=== PATIENT | male | born 1940 | race Caucasian/White ===

== ENCOUNTER 2018-08-26 00:25 | Inpatient (IN) | payer MEDICARE, OTHER ==
[2018-08-26] VITALS (45 sets, daily range): BP systolic 64–132; BP diastolic 43–107; PULSE 65–97; RESP 14–25
[~2018-08-26] VITALS: Ht 172.7 cm; Wt 90.0 kg
[2018-08-26] MEDS ORDERED: SODIUM CHLORIDE 0.9% 1L BAG IV* STA (00:31)
[2018-08-26] MEDS ORDERED: CEFEPIME 2GM/50 ML (PMX) 50 ML IVPB STA (00:31)
[2018-08-26] MEDS ORDERED: VANCOMYCIN 1 GM (PMX) 250 ML IVPB ONE (01:00)
[2018-08-26] MEDS ORDERED: NORepinephrine 8MG/250 ML (PMX 250 ML IV STA (02:39)
[2018-08-26] MEDS ORDERED: CALCIUM GLUCONATE 10% 1 GM in DEXTROSE 5% 100 ML IVPB ONE (03:00)
[2018-08-26] MEDS ORDERED: NA BICARBONATE 8.4% 50 ML SYG IV ONE (03:00)
[2018-08-26] MEDS: SOD CHLORIDE 0.9% 1,000 ML IV SCH ×3 (03:12→20:14)
[2018-08-26] MEDS ORDERED: SODIUM POLYSTYRENE 15 GM KIT (POWDER + SORBITOL) PO ONE (03:30)
[2018-08-26] MEDS ORDERED: ONDANSETRON 4 MG INJ IV PRN (03:30)
[2018-08-26] MEDS ORDERED: ACETAMINOPHEN 650MG/20.3ML CUP PO PRN (03:30)
[2018-08-26] MEDS ORDERED: ALBUTEROL/IPRATROPIUM (NEB) 3 ML AMP NEB PRN (03:30)
[2018-08-26] MEDS ORDERED: BISA10SU55 RC (03:51)
[2018-08-26] MEDS ORDERED: MAGN400O19 PO (03:51)
[2018-08-26] MEDS ORDERED: ASPI-535 PO (03:51)
[2018-08-26] MEDS ORDERED: HEPA500021 SQ (03:51)
[2018-08-26] MEDS ORDERED: NA P230E RC (03:51)
[2018-08-26] MEDS ORDERED: CHOL100062 PO (03:51)
[2018-08-26] MEDS ORDERED: ATOR-2 PO (03:51)
[2018-08-26] MEDS ORDERED: TUBE5VIA3 ID (03:51)
[2018-08-26] MEDS ORDERED: MULT-105 PO (03:51)
[2018-08-26] MEDS ORDERED: TAMS-14 PO (03:51)
[2018-08-26] MEDS ORDERED: GABA300C16 PO (03:51)
[2018-08-26] MEDS ORDERED: ACET325T45 PO (03:51)
[2018-08-26] MEDS ORDERED: LISI2.5T59 PO (03:51)
--- NOTE | 2018-08-26 03:56 | ERD ---
ER Documentation Chief Complaint Chief Complaint bib ra from home for hypotension, weakness HPI 77-year-old male history of stroke, prior colon CA status post resection in June who presents to the emergency room with weakness and hypotension. It appears the patient has had multiple aspiration events over the last several months. The patient has a cough today. Patient has decreased responsiveness and is feeling generally weak. He is here with his daughter. He is full code. Symptoms are severe and remainder of HPI is limited given severe hypotension. ROS All systems reviewed and are negative except as per history of present illness. Medications Home Meds Reported Medications Cholecalciferol* (Vitamin D3*) 1,000 Unit Tablet, 1000 UNIT PO DAILY, TAB 08/26/18 Tuberculin,Purif.prot.deriv. (Tubersol) 5 Tub Unit/0.1 Ml Vial, 5 TUB ID, VIAL INJECT 0.1 ML INTRADERMALLY EVERY 10 DAYS FOR PPD SCREENING FOR 11DAYS READ IN 48 HOURS, IF NEGATIVE GIVE 2 STEP IN 7 DAYS FROM FIRST DOSE. 08/26/18 Tamsulosin Hcl* (Flomax*) 0.4 Mg Cap.er.24h, 0.4 MG PO HS, CAP 08/26/18 Multivitamin with Minerals (Multivitamins with Minerals) 1 Each Tablet, 1 EACH PO DAILY, TAB 08/26/18 Lisinopril* (Lisinopril*) 2.5 Mg Tablet, 2.5 MG PO DAILY for HTN, #30 TAB 08/26/18 Heparin Sodium,Porcine/Pf (HEPARIN SOD 5,000 UNIT/ 0.5 ML) 5,000 Unit/0.5 Ml Vial, 5000 UNIT SQ Q12H for DVTPROPHYLAXIS, VIAL 08/26/18 Gabapentin* (Gabapentin*) 300 Mg Capsule, 300 MG PO QHS, #60 CAP 08/26/18 Na Phos,M-B/Na Phos,Di-Ba (Fleet Enema Extra) 230 Ml Enema, 230 ML RC, ENEMA 08/26/18 Bisacodyl (Dulcolax) 10 Mg Supp.rect, 10 MG RC PRN for CONSTIPATION, SUPP.RECT 08/26/18 Magnesium Hydroxide* (Milk Of Magnesia*) 400 Mg/5 Ml Oral.susp, 30 ML PO DAILY, ML 08/26/18 Atorvastatin* (Atorvastatin*) 80 Mg Tablet, 80 MG PO QHS, #30 TAB 08/26/18 Aspirin Ec (Aspir 81) 81 Mg Tablet.dr, 81 MG PO DAILY for CVA PROPHYLAXIS, #30 TAB 08/26/18 Acetaminophen* (Acetaminophen*) 325 Mg Tablet, 650 MG PO Q4H PRN for PAIN AND OR ELEVATED TEMP, #30 TAB 08/26/18 Allergies Allergies: Coded Allergies: No Known Allergy (Unverified , 08/26/18) PMhx/Soc Hx Neurological Disorder: Yes Hx Respiratory Disorders: Yes Hx Cardiac Disorders: Yes Hx Psychiatric Problems: Yes Hx Alcohol Use: No Hx Substance Use: No Hx Tobacco Use: No Smoking Status: Never smoker FmHx Family History: No diabetes Physical Exam Vitals Vital Signs Date Temp Pulse Resp B/P (MAP) Pulse Ox O2 O2 Flow FiO2 Time Delivery Rate 08/26/18 99 18 144/77 98 Room Air 04:08 (99) 08/26/18 98.7 89 22 119/82 100 Room Air 03:57 (94) 08/26/18 98.7 98 22 88/60 (69) 93 Room Air 03:50 08/26/18 88 22 100/75 93 Room Air 03:05 (83) 08/26/18 88 22 89/59 (69) 93 Room Air 02:05 08/26/18 98.7 93 22 94/43 (60) 100 Room Air 01:31 08/26/18 98.7 95 25 76/52 (60) 100 00:36 08/26/18 Nasal 00:36 Cannula Physical Exam General: No significant distress Head: Normocephalic, atraumatic. Eyes: Pupils equally reactive, EOM intact ENT: Moist mucous membranes Neck: Supple, no lymphadenopathy Respiratory: Rhonchi bilaterally Cardiovascular: RRR, no murmurs, rubs, or gallops Abdominal: Soft, ostomy with good output : Deferred MSK: Limited movement of all 4 extremities, no bony abnormalities Neurologic: Limited exam, and encephalopathic, limited movement of all 4 extremi ties Skin: No rash, no significant breakdown Psych: Unable to assess Result Diagram: 08/26/18 0030 08/26/18 0030 Results 24 hrs Laboratory Tests Test 08/26/18 00:30 08/26/18 00:38 08/26/18 02:50 White Blood Count 18.8 10^3/ul Red Blood Count 3.81 10^6/ul Hemoglobin 12.0 g/dl Hematocrit 35.2 % Mean Corpuscular Volume 92.4 fl Mean Corpuscular Hemoglobin 31.5 pg Mean Corpuscular 34.1 g/dl Hemoglobin Concent Red Cell Distribution Width 14.0 % Platelet Count 654 10^3/UL Mean Platelet Volume 9.6 fl Immature Granulocytes % 1.500 % Neutrophils % % Segmented Neutrophils % (Manual) 85 % Lymphocytes % % Lymphocytes % (Manual) 5 % Reactive Lymphocytes % (Manual) 1 % Monocytes % % Monocytes % (Manual) 9 % Eosinophils % % Basophils % % Nucleated Red Blood Cells % 0.0 /100WBC Immature Granulocytes # 0.280 10^3/ul Neutrophils # 10^3/ul Lymphocytes (Manual) 0.9 10^3/ul Lymphocytes # 10^3/ul Reactive Lymphocytes # 0.1 10^3/ul Monocytes # 10^3/ul Monocytes # (Manual) 1.6 10^3/ul Eosinophils # 10^3/ul Basophils # 10^3/ul Nucleated Red Blood Cells # 10^3/ul Platelet Estimate INCREASED Anisocytosis 1+ Microcytosis 1+ Prothrombin Time 12.4 Sec Prothrombin Time Ratio 1.0 INR International Normalized Ratio 0.91 Activated Partial Thromboplast 28.1 Sec Time Sodium Level 132 mmol/L Potassium Level 6.1 mmol/L Chloride Level 91 mmol/L Carbon Dioxide Level 16 mmol/L Anion Gap 25 Blood Urea Nitrogen 91 mg/dl Creatinine 7.50 mg/dl Est Glomerular Filtrat Rate mL/min mL/min Glucose Level 184 mg/dl Calcium Level 10.8 mg/dl Total Bilirubin 0.9 mg/dl Direct Bilirubin 0.00 mg/dl Indirect Bilirubin 0.9 mg/dl Aspartate Amino Transf (AST/SGOT) 88 IU/L Alanine 189 IU/L Aminotransferase (ALT/SGPT) Alkaline Phosphatase 288 IU/L Troponin I 0.012 ng/ml Total Protein 9.6 g/dl Albumin 4.8 g/dl Globulin 4.80 g/dl Albumin/Globulin Ratio 1.00 Lipase 915 U/L POC Venous Lactate 3.1 mmol/L Lactic Acid Level 1.3 mmol/L Current Medications Medications Dose Sig/Cindy Start Time Status Last (Trade) Ordered Route PRN Stop Time Admin Dose Reason Admin Sodium 2,700 ml BOLUS OVER 2 08/26/18 DC 08/26/18 Chloride HOURS STAT 00:31 00:45 (NS) IV* 08/26/18 00:33 Cefepime HCl 50 ml @ ONCE STAT 08/26/18 DC 08/26/18 100 mls/hr IVPB 00:31 00:59 08/26/18 01:00 Vancomycin 250 ml @ ONCE ONCE 08/26/18 DC 08/26/18 HCl 125 mls/hr IVPB 01:00 02:11 08/26/18 02:59 250 ml @ ONCE STAT 08/26/18 08/26/18 Norepinephrin 7.5 mls/hr IV 02:39 02:48 e 08/27/18 11:58 Calcium 110 ml @ ONCE ONCE 08/26/18 DC 08/26/18 Gluconate 1 110 mls/hr IVPB 03:00 03:01 gm/Dextrose 08/26/18 03:59 Sodium 50 ml ONCE ONCE 08/26/18 DC 08/26/18 Bicarbonate IV 03:00 03:01 (Na Bicarb 08/26/18 03:01 8.4% Syg) Sodium 1,000 ml @ Q10H IV 08/26/18 Chloride 100 mls/hr 03:12 Ondansetron 4 mg Q6H PRN 08/26/18 HCl (Zofran IV NAUSEA 03:30 Inj) AND/OR VOMITING Albuterol/ 3 ml Q2H RESP 08/26/18 Ipratropium THERAPY PRN 03:30 (Duoneb) NEB SHORTNESS OF BREATH 650 mg Q6H PRN 08/26/18 Acetaminophen PO PAIN 03:30 (Tylenol LEVEL 1-3 OR Liquid) FEVER Famotidine 20 mg DAILY IV 08/26/18 (Pepcid Iv) 09:00 Heparin 5,000 unit Q12 SC 08/26/18 Sodium 09:00 (Porcine) (Heparin (5000 Units/1ml)) 250 ml @ PER 08/26/18 Norepinephrin 1.875 mls/ PROTOCOL IV 03:30 e hr 100 ml @ ONCE ONCE 08/26/18 Levofloxacin/ 100 mls/hr IVPB 06:00 Dextrose 08/26/18 06:59 Sodium 30 gm ONCE ONCE 08/26/18 DC Polystyrene PO 03:30 Sulfonate 08/26/18 03:31 (Kayexelate 15 Gm Kit (Powder+Sorbi racquel)) 50 ml @ 50 Q48H IVPB 08/28/18 Levofloxacin/ mls/hr 06:00 Dextrose Procedures/MDM EKG, MONITORS, & DIAGNOSTIC IMAGING: EKG: I reviewed and interpreted a 12-lead EKG. Rhythm: Normal sinus rhythm ST Changes: No contiguous ST segment elevations T waves: No contiguous T wave inversions Impression: No evidence of acute cardiac ischemia cXR IMPRESSION: 1. Mildly diminished lung volumes, otherwise no acute findings. 2. Aortic atherosclerosis. RPTAT: HJBB Repeat CXR Chest x-ray: I reviewed and interpreted a 1 view of the chest Mediastinum: No enlargement Cardiac silhouette: No cardiomegaly Airspace: TLC in good position, no ptx Bones: No evidence of fracture CT a/pIMPRESSION: 1. Heterogeneous air space consolidation in the posterior right lung base compatible with atelectasis, aspiration or pneumonia. 2. No additional acute inflammatory process in the imaged abdomen or pelvis. 3. Changes related to previous bowel surgery. No evidence for obstruction. 4. Several small gallbladder calcifications. 5. Moderate aortic atherosclerosis. 6. Large left and small right fat containing inguinal hernias. RPTAT: HJBB PROCEDURE: Central Line Note: Consent: Critical patient, unable to obtain informed consent Indication: Critically ill patient requiring specialized vascular access for fluid or pressor management Location: Right IJ Indication: Shock Procedure: Sterile procedure was observed throughout insertion of the central line. The insertion site was prepped with sterile solution. Ultrasound-guided identification of the vein was performed. Insertion of a needle into the vein was obtained with return of dark, nonpulsatile blood. The wire was then threaded through the needle without complication. The wire was then identified within the vein using ultrasound. A small skin incision was made, the needle was removed intact, dilation of the vein was performed and insertion of a triple lumen catheter was completed. The catheter was then sutured to the skin. All 3 ports grant back and flushed without difficulty. A sterile dressing was applied. The patient tolerated the procedure well there were no complications. Emergency Bedside Ultrasound: Indication: Central line Probe Type: Linear Findings: Dynamic ultrasound utilizing compressive technique with both linear and horizontal views, additional images showing wire within the venous system were obtained. The images were saved along with patient information on a paper chart to be scanned into EMR. The patient tolerated the procedure well and there were no complications. A post-line chest x-ray was ordered as indicated. LAB INTERPRETATION: I reviewed the laboratory testing and it shows leukocytosis, lactic acidosis, acute renal failure, hyperkalemia MEDICAL DECISION MAKING: Patient presents with hypotension. Cough, likely aspiration event. Patient also appears to be significantly dehydrated. Code sepsis initiated. The patient's goals of care were discussed with the family member. The patient is full code. ER COURSE: * Patient had aggressive fluid resuscitation, blood cultures, broad-spectrum antibiotics. Persistent hypotension was noted. Triple-lumen catheter was inserted. * Patient continues to protect his airway and does not require intubation. Continue to monitor. Pressor, levo, initiated and titrated for mean arterial pressure greater than 65 * Patient had hyperkalemia acute renal failure, patient appears to be dehydrated and this will likely correct with fluid resuscitation. Hyperkalemia without evidence of EKG changes. However, calcium provided, bicarbonate provided. Patient is not a good candidate for Kayexalate. Continue to monitor. CONSULTATION: None DISPOSITION PLAN: Accepting care team and consultations: I discussed the current laboratory data, diagnostic imaging and emergency care provided. Admitting team: Dr. Cosby Admitting team indication: Insurance directed Sepsis Documentation: Patient's infectious symptoms have not stabilized and the patient is at risk of rapid decompensation. The patient will be admitted for careful hydration, antibiotic therapy, and infectious source control. SEVERE SEPSIS CRITERIA: Infectious source: Aspiration pneumonia End organ damage indicated by: [Lactate > 2.0 mmol/L Hypotension (SBP < 90 or >40 mmHG drop or MAP < 65) SEPSIS MANAGEMENT Time of recognition of sepsis: Upon MD assessment. Time of recognition of severe sepsis: 12:38 AM. Time of recognition of septic shock: 1:30 AM. 3 HOUR BUNDLE Blood cultures x 2 before broad-spectrum antibiotics: Yes 30 ml/kg NS bolus completed Initial lactate 3.1 Repeat lactate 1.3 SEPTIC SHOCK ASSESSMENT: No lactic acid > 4.0 YES Persistent hypotension (SBP < 90 or 40 mmHg drop, MAP < 65) despite 30 mL/kg IV fluid bolus VOLUME REASSESSMENT FOR SEPTIC SHOCK: Reevaluation Time: 2:05 AM Temperature of 98.7 heart rate 88 respiratory 22 blood pressure 89/59 pulse ox 93 on room air Heart regular rate & rhythm Lungs rhonchi Skin warm & dry Cap Refill less than 2 seconds Peripheral pulses radially present PERSISTENT HYPOTENSION TREATMENT: Comfort care no Central line RIJ Vasopressor started YES, levo I considered further perfusion assessment with CVP measurement, SCVO2, bedside ultrasound volume assessment, passive leg raise, trial of further fluid bolus. And proceeded with 30 ml/kg fluid bolus of NSS, broad spectrum antibiotics, and admission. CRITICAL CARE Critical care time 55 minutes Emergent fluid management while maintaining close respiratory support. Provision of immediate and broad-spectrum antibiotic therapy. Simultaneous as sessment for possible sources in order to direct targeted therapy. Consideration for invasive and chemical support to prevent cardiopulmonary collapse. Critical care time is independent of procedures performed. Departure Diagnosis: Primary Impression: Septic shock Additional Impressions: Dehydration, severe Acute renal failure Acute renal failure type: unspecified Qualified Codes: N17.9 - Acute kidney failure, unspecified Hyperkalemia Aspiration pneumonia Aspiration pneumonia type: unspecified Laterality: unspecified laterality Lung location: unspecified part of lung Qualified Codes: J69.0 - Pneumonitis due to inhalation of food and vomit Condition: Critical MICAH PERRY MD Aug 26, 2018 03:56
[2018-08-26] MEDS ORDERED: LEVOFLOXACIN 500MG/D5W (PMX) 100 ML IVPB ONE (06:00)
--- NOTE | 2018-08-26 06:40 | HP ---
Date/Time of Note Date/Time of Note DATE: 08/26/18 TIME: 06:34 Assessment/Plan VTE Prophylaxis Pharmacological prophylaxis: heparin Lines/Catheters IV Catheter Type (from Nrsg): Saline Lock Assessment/Plan Assessment/Plan 1. Shock, hypovolemic versus septic -IV fluid -Pressure support as needed -ICU admission if continues to require pressor -2D echo -Empiric IV antibiotic 2. Presumed acute on CKD, secondary to hypotension -IV fluid, pressor support -Will place a Brady, but patient appears to have a urostomy -Renal ultrasound -Nephrology consult 3. Sepsis: Likely secondary to aspiration pneumonia -Empiric IV antibiotic -Trend lactate -Follow-up culture results 4. Hypokalemia: Secondary to acute on CKD -correct as needed -Nephrology consult 5. Metabolic acidosis, secondary to acute on CKD -Status post bicarb push -See #2 6. History of colon cancer, status post resection 7. History of CVA: Supportive care Result Diagram: 08/26/18 0030 08/26/18 0030 Results 24hrs Laboratory Tests Test 08/26/18 00:30 08/26/18 00:38 08/26/18 02:50 White Blood Count 18.8 H Red Blood Count 3.81 L Hemoglobin 12.0 L Hematocrit 35.2 L Mean Corpuscular Volume 92.4 Mean Corpuscular Hemoglobin 31.5 Mean Corpuscular Hemoglobin Concent 34.1 Red Cell Distribution Width 14.0 Platelet Count 654 H Mean Platelet Volume 9.6 Immature Granulocytes % 1.500 H Neutrophils % Segmented Neutrophils % (Manual) 85 H Lymphocytes % Lymphocytes % (Manual) 5 L Reactive Lymphocytes % (Manual) 1 H Monocytes % Monocytes % (Manual) 9 Eosinophils % Basophils % Nucleated Red Blood Cells % 0.0 Immature Granulocytes # 0.280 H Neutrophils # Lymphocytes (Manual) 0.9 Lymphocytes # Reactive Lymphocytes # 0.1 H Monocytes # Monocytes # (Manual) 1.6 H Eosinophils # Basophils # Nucleated Red Blood Cells # Platelet Estimate INCREASED Anisocytosis 1+ Microcytosis 1+ Prothrombin Time 12.4 Prothrombin Time Ratio 1.0 INR International Normalized Ratio 0.91 Activated Partial Thromboplast Time 28.1 Sodium Level 132 L Potassium Level 6.1 *H Chloride Level 91 L Carbon Dioxide Level 16 L Anion Gap 25 H Blood Urea Nitrogen 91 H Creatinine 7.50 H Est Glomerular Filtrat Rate mL/min Glucose Level 184 Calcium Level 10.8 H Total Bilirubin 0.9 Direct Bilirubin 0.00 Indirect Bilirubin 0.9 Aspartate Amino Transf (AST/SGOT) 88 H Alanine Aminotransferase (ALT/SGPT) 189 H Alkaline Phosphatase 288 H Troponin I 0.012 Total Protein 9.6 H Albumin 4.8 Globulin 4.80 H Albumin/Globulin Ratio 1.00 Lipase 915 H POC Venous Lactate 3.1 *H Lactic Acid Level 1.3 HPI/ROS Admit Date/Time Admit Date/Time Hx of Present Illness Patient is a 77-year-old male with a history of hypertension, dyslipidemia, BPH, colon CA with right-sided colostomy or urostomy and history of CVA. Patient was brought from SNF for hypotension. Patient is a poor historian as such information is been from chart review and from the ER physician. Presents the ER, blood pressure was 76/52. He was found to have a creatinine of 7.5 with a potassium 6.1 8, BUN 91, bicarb 16, status post bicarb push. WBC 19,000, initial lactate 3.1, trended down to 1.3 CT abdomen/pelvis shows 1. Heterogeneous air space consolidation in the posterior right lung base compatible with atelectasis, aspiration or pneumonia. 2. No additional acute inflammatory process in the imaged abdomen or pelvis. 3. Changes related to previous bowel surgery. No evidence for obstruction. 4. Several small gallbladder calcifications. 5. Moderate aortic atherosclerosis. 6. Large left and small right fat containing inguinal hernias. PMH/Family/Social Past Medical History Medical History: other (See HPI) Medications Current Medications Norepinephrine 250 ml @ 7.5 mls/hr ONCE STAT IV Last administered on 08/26/18at 02:48; Admin Dose 7.5 MLS/HR; Start 08/26/18 at 02:39; Stop 08/27/18 at 11:58 Sodium Chloride 1,000 ml @ 100 mls/hr Q10H IV Last administered on 08/26/18at 03:12; Admin Dose 100 MLS/HR; Start 08/26/18 at 03:12 Ondansetron HCl (Zofran Inj) 4 mg Q6H PRN IV NAUSEA AND/OR VOMITING; Start 08/26/18 at 03:30 Albuterol/ Ipratropium (Duoneb) 3 ml Q2H RESP THERAPY PRN NEB SHORTNESS OF BREATH; Start 08/26/18 at 03:30 Acetaminophen (Tylenol Liquid) 650 mg Q6H PRN PO PAIN LEVEL 1-3 OR FEVER; Start 08/26/18 at 03:30 Famotidine (Pepcid Iv) 20 mg DAILY IV ; Start 08/26/18 at 09:00 Heparin Sodium (Porcine) (Heparin (5000 Units/1ml)) 5,000 unit Q12 SC ; Start 08/26/18 at 09:00 Norepinephrine 250 ml @ 1.875 mls/ hr PER PROTOCOL IV ; Start 08/26/18 at 03:30 Levofloxacin/ Dextrose 100 ml @ 100 mls/hr ONCE ONCE IVPB ; Start 08/26/18 at 06:00; Stop 08/26/18 at 06:59 Levofloxacin/ Dextrose 50 ml @ 50 mls/hr Q48H IVPB ; Start 08/28/18 at 06:00 Coded Allergies: No Known Allergy (Unverified , 08/26/18) Past Surgical History Past Surgical Hx: other (See HPI) Family History Significant Family History: no pertinent family hx Social History Alcohol Use: none Smoking Status: Never smoker Drug Use: none Exam/Review of Systems Vital Signs Vitals Vital Signs Date Temp Pulse Resp B/P (MAP) Pulse Ox O2 O2 Flow FiO2 Time Delivery Rate 08/26/18 101 18 129/75 100 Room Air 05:39 (93) 08/26/18 98.7 04:41 Exam Constitutional: other (No acute distress) Head: normocephalic, atraumatic Eyes: EOMI, PERRL Respiratory: normal air movement Cardiovascular: other (Tachycardic with regular rhythm) Gastrointestinal: other (Right-sided colostomy/urostomy bag in place with liquid content) Extremities: normal pulses YING COELHO MD Aug 26, 2018 06:40
[2018-08-26] MEDS: FAMOTIDINE 20 MG INJ IV SCH (08:05)
[2018-08-26] MEDS: HEPARIN 5,000 UNIT/1 ML VIAL SC SCH ×2 (08:05→20:18)
--- NOTE | 2018-08-26 09:15 | CONS ---
DATE OF ADMISSION: 08/26/2018 DATE OF CONSULTATION: 08/26/2018 TYPE OF CONSULTATION: Nephrology. REASON FOR CONSULTATION: Acute kidney injury. PHYSICIAN REQUESTING CONSULTATION: Dr. Cosby. HISTORY OF PRESENT ILLNESS: This is a 77-year-old male with a past medical history of bone cancer st atus post resection, history of neuropathy, who presents to [facility] with weaknes s and hypertension. The patient's history is obtained by reviewing medical records speaking to [facility] staff. The patient currently is having a cough for the past 24 hours. The patient was noted to be feeling weak, more responsive and as a result, he was brought into the emergency room. Upon arriv al, the patient was found to be hypertensive with systolic pressures in 70s. The patient had a mildl y elevated creatinine of 7.5 and bicarbonate of 16. The patient had a lactic acid of 3.1. White cou nt 19,000. The patient had a CT scan of abdomen and pelvis, which showed findings of possible pneumo vashti. The patient was started on IV fluids, antibiotics and pressor support. In terms of patient's renal history, there have been no reports of any prior history of acute kidney injury or chronic kidney disease per medical records. The patient had no reports of any hemoptysis, hematemesis or hematochezia. PAST MEDICAL HISTORY: History of colon cancer. PAST SURGICAL HISTORY: Status post colectomy with ileostomy. FAMILY HISTORY: No family history of kidney disease. SOCIAL HISTORY: He does not drink, smoke or do drugs. MEDICATIONS: The patient's medications have been reviewed. REVIEW OF SYSTEMS: Unable to do adequate review of systems as patient is obtunded. Pertinent positi ves as obtained by reviewing medical records, speaking to hospital staff, stated in HPI, otherwise ne gative. PHYSICAL EXAMINATION: VITAL SIGNS: Blood pressure is 142/78, respirations 18, pulse 106, temperature 98.7. HEENT: Head is normocephalic. NECK: Supple. HEART: Regular rate. LUNGS: Show diminished breath sounds at the base. ABDOMEN: Soft, nontender to palpation without rebound or guarding. The patient has noted ileostomy and history of a colectomy. EXTREMITIES: Negative for clubbing, cyanosis, no edema. DERMATOLOGIC: No rashes. MUSCULOSKELETAL: No joint effusion. NEUROLOGIC: The patient is obtunded. LABORATORY DATA: Reviewed. ASSESSMENT AND PLAN: This is a 77-year-old male who presents with: 1. Nonoliguric acute kidney injury with unknown baseline creatinine. Etiology of acute kidney injur y is likely multifactorial secondary to septic acute kidney injury, volume depletion, hemodynamics. The possibility of tubular injury due to sepsis and shock is a consideration. The patient's CT scan shows no evidence of hydronephrosis or obstruction. Plan at this point is to have a Brady catheter p laced. We will continue aggressive IV hydration. Continue antibiotic therapy. Continue pressor sup port to maintain MAP of 65. We will monitor renal function closely. If renal function does not impr ove with supportive care, we would consider renal replacement therapy. 2. Hyperkalemia. Etiology is multifactorial secondary to acute kidney injury, metabolic acidosis. The patient is status post IV fluids, bicarbonate therapy. Plan is to repeat a renal panel, monitor potassium levels closely. If potassium levels cannot be medically managed, we would consider startin g renal replacement therapy. 3. Hypernatremia secondary to acute kidney injury. Continue to monitor. 4. Metabolic high anion gap acidosis with nonanion gap acidosis. Etiology is secondary to acute kid rick injury, lactic acidosis. Plan is to check an ABG to see if the patient is appropriately compensa tamy. The patient may require bicarbonate drip. We will monitor closely. 5. Lactic acidosis secondary to septic shock. Continue to treat underlying sepsis. Continue to ar[place] nd lactic acid levels. Monitor closely. 6. Anemia. Continue to monitor hemoglobin and hematocrit levels. 7. Mineral bone disorder, monitor calcium and phosphorus levels. 8. Septic shock. Etiology is unclear, possible pneumonia. Continue current management. Continue a ntibiotics, pressor support and IV fluids. 9. Acute encephalopathy, etiology is toxic metabolic. 10. History of colon cancer, status post resection. 11. History of cerebrovascular accident. Thank you, Dr. Cosby, for this interesting consult. It will be a pleasure to follow the patient with you throughout the hospital course. Dictated By: LE FLOREZ/CHRISSY Conf#: [id number] DID#: [id number] CC: MICAH PERRY MD;*EndCC*
[2018-08-26] MEDS: NORepinephrine 8MG/250 ML (PMX 250 ML IV SCH (13:02)
--- NOTE | 2018-08-26 17:58 | PN ---
Date/Time of Note Date/Time of Note DATE: 08/26/18 TIME: 17:51 Assessment/Plan VTE Prophylaxis Pharmacological prophylaxis: heparin Assessment/Plan Hospital Course 1. Septic shock likely secondary to pneumonia -CT shows possible right lung pneumonia -Continue empiric IV antibiotics -IV fluid -Pressors as needed -Follow-up on cultures 2. Presumed acute on CKD, secondary to sepsis and hemodynamics -IV fluid, pressor support -Brady placed -Nephrology consult appreciated, patient may need dialysis if renal function does not improve 3. Hyperkalemia secondary to renal failure-resolved -Corrected with bicarb and Kayexalate 4. History of colon cancer, status post resection 5. Metabolic acidosis, secondary to acute on CKD and sepsis -Status post bicarb push -Continue fluids and antibiotics 6. Transaminitis likely secondary to shock -Monitor 7. History of CVA: Supportive care Prophylaxis: Heparin Result Diagram: 08/26/18 0030 08/26/18 1108 Results 24hrs Laboratory Tests Test 08/26/18 00:30 08/26/18 00:38 08/26/18 02:50 08/26/18 05:27 White Blood Count 18.8 H Red Blood Count 3.81 L Hemoglobin 12.0 L Hematocrit 35.2 L Mean Corpuscular 92.4 Volume Mean Corpuscular 31.5 Hemoglobin Mean Corpuscular 34.1 Hemoglobin Concen t Red Cell 14.0 Distribution Width Platelet Count 654 H Mean Platelet 9.6 Volume Immature 1.500 H Granulocytes % Neutrophils % Segmented 85 H Neutrophils % (Manual) Lymphocytes % Lymphocytes % 5 L (Manual) Reactive 1 H Lymphocytes % (Manual) Monocytes % Monocytes % 9 (Manual) Eosinophils % Basophils % Nucleated Red 0.0 Blood Cells % Immature 0.280 H Granulocytes # Neutrophils # Lymphocytes 0.9 (Manual) Lymphocytes # Reactive 0.1 H Lymphocytes # Monocytes # Monocytes # 1.6 H (Manual) Eosinophils # Basophils # Nucleated Red Blood Cells # Platelet Estimate INCREASED Anisocytosis 1+ Microcytosis 1+ Prothrombin Time 12.4 Prothrombin Time 1.0 Ratio INR International 0.91 Normalized Ratio Activated 28.1 Partial Thrombopl ast Time Sodium Level 132 L Potassium Level 6.1 *H Chloride Level 91 L Carbon Dioxide 16 L Level Anion Gap 25 H Blood Urea 91 H Nitrogen Creatinine 7.50 H Est Glomerular Filtrat Rate mL/min Glucose Level 184 Calcium Level 10.8 H Total Bilirubin 0.9 Direct Bilirubin 0.00 Indirect 0.9 Bilirubin Aspartate Amino 88 H Transf (AST/SGOT) Alanine 189 H Aminotransferase (ALT/SGPT) Alkaline 288 H Phosphatase Troponin I 0.012 Total Protein 9.6 H Albumin 4.8 Globulin 4.80 H Albumin/Globulin 1.00 Ratio Lipase 915 H POC Venous 3.1 *H Lactate Lactic Acid Level 1.3 2.7 *H Test 08/26/18 11:08 08/26/18 14:00 Sodium Level 135 Potassium Level 5.0 Chloride Level 101 # Carbon Dioxide 16 L Level Anion Gap 18 #H Blood Urea 91 H Nitrogen Creatinine 6.10 H Est Glomerular Filtrat Rate mL/min Glucose Level 141 # Calcium Level 9.3 Urine Color ZAINA Urine Clarity SLIGHTLY CLOUDY A Urine pH 5.0 Urine Specific 1.018 [place] Urine Ketones NEGATIVE Urine Nitrite NEGATIVE Urine Bilirubin NEGATIVE Urine NEGATIVE Urobilinogen Urine Leukocyte TRACE A Esterase Urine Microscopic 1 RBC Urine Microscopic 2 WBC Urine Hemoglobin NEGATIVE Urine Random 237.45 Creatinine Urine Random < 13 L Sodium Urine Random 69.0 Potassium Urine Glucose NEGATIVE Urine Total 20.0 H Protein Subjective 24 Hr Interval Summary Constitutional: no complaints Exam/Review of Systems Exam Vitals Vital Signs Date Temp Pulse Resp B/P (MAP) Pulse Ox O2 O2 Flow FiO2 Time Delivery Rate 08/26/18 88 19 103/66 98 17:00 (78) 08/26/18 97.0 Room Air 16:00 Constitutional: alert Psych: confusion Respiratory: clear to auscultation Cardiovascular: regular rate and rhythm Gastrointestinal: soft; No distended Musculoskeletal: nl extremities to inspection Results Results 24hrs Laboratory Tests Test 08/26/18 00:30 08/26/18 00:38 08/26/18 02:50 08/26/18 05:27 White Blood Count 18.8 H Red Blood Count 3.81 L Hemoglobin 12.0 L Hematocrit 35.2 L Mean Corpuscular 92.4 Volume Mean Corpuscular 31.5 Hemoglobin Mean Corpuscular 34.1 Hemoglobin Concen t Red Cell 14.0 Distribution Width Platelet Count 654 H Mean Platelet 9.6 Volume Immature 1.500 H Granulocytes % Neutrophils % Segmented 85 H Neutrophils % (Manual) Lymphocytes % Lymphocytes % 5 L (Manual) Reactive 1 H Lymphocytes % (Manual) Monocytes % Monocytes % 9 (Manual) Eosinophils % Basophils % Nucleated Red 0.0 Blood Cells % Immature 0.280 H Granulocytes # Neutrophils # Lymphocytes 0.9 (Manual) Lymphocytes # Reactive 0.1 H Lymphocytes # Monocytes # Monocytes # 1.6 H (Manual) Eosinophils # Basophils # Nucleated Red Blood Cells # Platelet Estimate INCREASED Anisocytosis 1+ Microcytosis 1+ Prothrombin Time 12.4 Prothrombin Time 1.0 Ratio INR International 0.91 Normalized Ratio Activated 28.1 Partial Thrombopl ast Time Sodium Level 132 L Potassium Level 6.1 *H Chloride Level 91 L Carbon Dioxide 16 L Level Anion Gap 25 H Blood Urea 91 H Nitrogen Creatinine 7.50 H Est Glomerular Filtrat Rate mL/min Glucose Level 184 Calcium Level 10.8 H Total Bilirubin 0.9 Direct Bilirubin 0.00 Indirect 0.9 Bilirubin Aspartate Amino 88 H Transf (AST/SGOT) Alanine 189 H Aminotransferase (ALT/SGPT) Alkaline 288 H Phosphatase Troponin I 0.012 Total Protein 9.6 H Albumin 4.8 Globulin 4.80 H Albumin/Globulin 1.00 Ratio Lipase 915 H POC Venous 3.1 *H Lactate Lactic Acid Level 1.3 2.7 *H Test 08/26/18 11:08 08/26/18 14:00 Sodium Level 135 Potassium Level 5.0 Chloride Level 101 # Carbon Dioxide 16 L Level Anion Gap 18 #H Blood Urea 91 H Nitrogen Creatinine 6.10 H Est Glomerular Filtrat Rate mL/min Glucose Level 141 # Calcium Level 9.3 Urine Color ZAINA Urine Clarity SLIGHTLY CLOUDY A Urine pH 5.0 Urine Specific 1.018 [place] Urine Ketones NEGATIVE Urine Nitrite NEGATIVE Urine Bilirubin NEGATIVE Urine NEGATIVE Urobilinogen Urine Leukocyte TRACE A Esterase Urine Microscopic 1 RBC Urine Microscopic 2 WBC Urine Hemoglobin NEGATIVE Urine Random 237.45 Creatinine Urine Random < 13 L Sodium Urine Random 69.0 Potassium Urine Glucose NEGATIVE Urine Total 20.0 H Protein Medications Medication Current Medications Norepinephrine 250 ml @ 7.5 mls/hr ONCE STAT IV Last administered on 08/26/18at 02:48; Admin Dose 7.5 MLS/HR; Start 08/26/18 at 02:39; Stop 08/27/18 at 11:58 Sodium Chloride 1,000 ml @ 100 mls/hr Q10H IV Last administered on 08/26/18at 12:53; Admin Dose 100 MLS/HR; Start 08/26/18 at 03:12 Ondansetron HCl (Zofran Inj) 4 mg Q6H PRN IV NAUSEA AND/OR VOMITING; Start 08/26/18 at 03:30 Albuterol/ Ipratropium (Duoneb) 3 ml Q2H RESP THERAPY PRN NEB SHORTNESS OF BREATH; Start 08/26/18 at 03:30 Acetaminophen (Tylenol Liquid) 650 mg Q6H PRN PO PAIN LEVEL 1-3 OR FEVER; Start 08/26/18 at 03:30 Famotidine (Pepcid Iv) 20 mg DAILY IV Last administered on 08/26/18at 08:05; Admin Dose 20 MG; Start 08/26/18 at 09:00 Heparin Sodium (Porcine) (Heparin (5000 Units/1ml)) 5,000 unit Q12 SC Last administered on 08/26/18at 08:05; Admin Dose 5,000 UNIT; Start 08/26/18 at 09:00 Norepinephrine 250 ml @ 1.875 mls/ hr PER PROTOCOL IV Last administered on 08/26/18at 13:02; Admin Dose 18.75 MLS/HR; Start 08/26/18 at 03:30 Levofloxacin/ Dextrose 50 ml @ 50 mls/hr Q48H IVPB ; Start 08/28/18 at 06:00 HENRIETTA MALDONADO Aug 26, 2018 17:58
[2018-08-27] VITALS (96 sets, daily range): BP systolic 73–131; BP diastolic 32–87; PULSE 61–98; RESP 10–26
[2018-08-27] MEDS: SOD CHLORIDE 0.9% 1,000 ML IV SCH ×2 (04:57→13:42)
--- NOTE | 2018-08-27 08:19 | CONS ---
Consult Date/Type/Reason Admit Date/Time Aug 26, 2018 at 02:47 Initial Consult Date Date/Time of Note DATE: 08/27/18 TIME: 08:12 Subjective 77-year-old male with a past medical history of bone cancer status post resection, history of neuropathy, who presents to [facility] with weakness and hypertension. The patient's history is obtained by reviewing medical records speaking to hospital staff. The patient currently is having a cough for the past 24 hours. The patient was noted to be feeling weak, more responsive and as a result, he was brought into the emergency room. Upon arrival, the patient was found to be hypertensive with systolic pressures in 70s. The patient had a elevated creatinine of 7.5 and bicarbonate of 16. The patient had a lactic acid of 3.1. White count 19,000. The patient had a CT scan of abdomen and pelvis, which showed findings of possible pneumonia. The patient was started on IV fluids, antibiotics and pressor support. now on Sodium Chloride @ 100 mls/hr continues good uo weaned down on levo pending swallow eval. poc reviewed with dr. marcus. PHYSICAL EXAMINATION: HEENT: Head is normocephalic. NECK: Supple. HEART: Regular rate. LUNGS: Show diminished breath sounds at the base. ABDOMEN: Soft, nontender to palpation without rebound or guarding. The patient has noted ileostomy and history of a colectomy. EXTREMITIES: Negative for clubbing, cyanosis, no edema. DERMATOLOGIC: No rashes. MUSCULOSKELETAL: No joint effusion. NEUROLOGIC: The patient is obtunded. Objective Vitals Vital Signs Date Temp Pulse Resp B/P (MAP) Pulse Ox O2 O2 Flow FiO2 Time Delivery Rate 08/27/18 91 23 91/73 (79) 98 06:15 08/27/18 Room Air 06:00 08/27/18 98.2 00:00 Intake and Output 08/26/18 08/26/18 08/27/18 1515:00 23:00 07:00 IntakeIntake Total 401.25 ml 882.45 ml 743.7 ml OutputOutput Total 450 ml 630 ml 570 ml BalanceBalance -48.75 ml 252.45 ml 173.7 ml Results/Medications Result Diagram: 08/27/18 0457 08/27/18 0457 Results 24 hrs Laboratory Tests Test 08/26/18 11:08 08/26/18 14:00 08/27/18 04:57 Sodium Level 135 139 Potassium Level 5.0 4.7 Chloride Level 101 # 106 Carbon Dioxide Level 16 L 17 L Anion Gap 18 #H 16 H Blood Urea Nitrogen 91 H 93 H Creatinine 6.10 H 4.70 #H Est Glomerular Filtrat Rate mL/min Glucose Level 141 # 97 # Calcium Level 9.3 9.4 Urine Color ZAINA Urine Clarity SLIGHTLY CLOUDY A Urine pH 5.0 Urine Specific [place] 1.018 Urine Ketones NEGATIVE Urine Nitrite NEGATIVE Urine Bilirubin NEGATIVE Urine Urobilinogen NEGATIVE Urine Leukocyte Esterase TRACE A Urine Microscopic RBC 1 Urine Microscopic WBC 2 Urine Hemoglobin NEGATIVE Urine Random Creatinine 237.45 Urine Random Sodium < 13 L Urine Random Potassium 69.0 Urine Glucose NEGATIVE Urine Total Protein 20.0 H White Blood Count 12.5 #H Red Blood Count 2.81 #L Hemoglobin 8.8 #L Hematocrit 27.0 #L Mean Corpuscular Volume 96.1 Mean Corpuscular Hemoglobin 31.3 Mean Corpuscular 32.6 Hemoglobin Concent Red Cell Distribution Width 14.3 Platelet Count 416 #H Mean Platelet Volume 9.3 Immature Granulocytes % 1.200 H Neutrophils % 72.1 Lymphocytes % 12.8 L Monocytes % 13.2 H Eosinophils % 0.1 Basophils % 0.6 Nucleated Red Blood Cells % 0.0 Immature Granulocytes # 0.150 H Neutrophils # 9.0 H Lymphocytes # 1.6 Monocytes # 1.7 H Eosinophils # 0.0 Basophils # 0.1 Nucleated Red Blood Cells # 0.0 Phosphorus Level 6.5 H Magnesium Level 2.5 Total Bilirubin 0.6 Direct Bilirubin 0.00 Indirect Bilirubin 0.6 Aspartate Amino 69 H Transf (AST/SGOT) Alanine 155 H Aminotransferase (ALT/SGPT) Alkaline Phosphatase 186 H Total Protein 6.7 # Albumin 3.2 #L Globulin 3.50 H Albumin/Globulin Ratio 0.91 Home Meds Reported Medications Cholecalciferol* (Vitamin D3*) 1,000 Unit Tablet, 1000 UNIT PO DAILY, TAB 08/26/18 Tuberculin,Purif.prot.deriv. (Tubersol) 5 Tub Unit/0.1 Ml Vial, 5 TUB ID, VIAL INJECT 0.1 ML INTRADERMALLY EVERY 10 DAYS FOR PPD SCREENING FOR 11DAYS READ IN 48 HOURS, IF NEGATIVE GIVE 2 STEP IN 7 DAYS FROM FIRST DOSE. 08/26/18 Tamsulosin Hcl* (Flomax*) 0.4 Mg Cap.er.24h, 0.4 MG PO HS, CAP 08/26/18 Multivitamin with Minerals (Multivitamins with Minerals) 1 Each Tablet, 1 EACH PO DAILY, TAB 08/26/18 Lisinopril* (Lisinopril*) 2.5 Mg Tablet, 2.5 MG PO DAILY for HTN, #30 TAB 08/26/18 Heparin Sodium,Porcine/Pf (HEPARIN SOD 5,000 UNIT/ 0.5 ML) 5,000 Unit/0.5 Ml Vial, 5000 UNIT SQ Q12H for DVTPROPHYLAXIS, VIAL 08/26/18 Gabapentin* (Gabapentin*) 300 Mg Capsule, 300 MG PO QHS, #60 CAP 08/26/18 Na Phos,M-B/Na Phos,Di-Ba (Fleet Enema Extra) 230 Ml Enema, 230 ML RC, ENEMA 08/26/18 Bisacodyl (Dulcolax) 10 Mg Supp.rect, 10 MG RC PRN for CONSTIPATION, SUPP.RECT 08/26/18 Magnesium Hydroxide* (Milk Of Magnesia*) 400 Mg/5 Ml Oral.susp, 30 ML PO DAILY, ML 08/26/18 Atorvastatin* (Atorvastatin*) 80 Mg Tablet, 80 MG PO QHS, #30 TAB 08/26/18 Aspirin Ec (Aspir 81) 81 Mg Tablet.dr, 81 MG PO DAILY for CVA PROPHYLAXIS, #30 TAB 08/26/18 Acetaminophen* (Acetaminophen*) 325 Mg Tablet, 650 MG PO Q4H PRN for PAIN AND OR ELEVATED TEMP, #30 TAB 08/26/18 Medications Current Medications Norepinephrine 250 ml @ 7.5 mls/hr ONCE STAT IV Last administered on 08/26/18at 02:48; Admin Dose 7.5 MLS/HR; Start 08/26/18 at 02:39; Stop 08/27/18 at 11:58 Sodium Chloride 1,000 ml @ 100 mls/hr Q10H IV Last administered on 08/27/18at 04:57; Admin Dose 100 MLS/HR; Start 08/26/18 at 03:12 Ondansetron HCl (Zofran Inj) 4 mg Q6H PRN IV NAUSEA AND/OR VOMITING; Start 08/26/18 at 03:30 Albuterol/ Ipratropium (Duoneb) 3 ml Q2H RESP THERAPY PRN NEB SHORTNESS OF BREATH; Start 08/26/18 at 03:30 Acetaminophen (Tylenol Liquid) 650 mg Q6H PRN PO PAIN LEVEL 1-3 OR FEVER; Start 08/26/18 at 03:30 Famotidine (Pepcid Iv) 20 mg DAILY IV Last administered on 08/26/18at 08:05; Admin Dose 20 MG; Start 08/26/18 at 09:00 Heparin Sodium (Porcine) (Heparin (5000 Units/1ml)) 5,000 unit Q12 SC Last administered on 08/26/18at 20:18; Admin Dose 5,000 UNIT; Start 08/26/18 at 09:00 Norepinephrine 250 ml @ 1.875 mls/ hr PER PROTOCOL IV Last administered on 08/26/18at 13:02; Admin Dose 18.75 MLS/HR; Start 08/26/18 at 03:30 Levofloxacin/ Dextrose 50 ml @ 50 mls/hr Q48H IVPB ; Start 08/28/18 at 06:00 Assessment/Plan Assessment/Plan (Daily) 1. Nonoliguric acute kidney injury with unknown baseline creatinine. nonoliguric and nonproteinuric with benign sediment. - Etiology of acute kidney injury is likely multifactorial secondary to septic acute kidney injury, volume depletion, hemodynamics. The possibility of tubular injury due to sepsis and shock is a consideration. The patient's CT scan shows no evidence of hydronephrosis or obstruction. - lisinopril on hold - continue aggressive IV hydration. Continue antibiotic therapy. Continue pressor support to maintain MAP of 65. -monitor renal function closely. improvement over last 24 hours a good sign. -FENa<1 2. Hyperkalemia. Etiology is multifactorial secondary to acute kidney injury, metabolic acidosis. The patient is status post IV fluids, bicarbonate therapy. - improved. monitor 3. Hypernatremia secondary to acute kidney injury. improved. Continue to monitor. 4. Metabolic high anion gap acidosis with nonanion gap acidosis. Etiology is secondary to acute kidney injury, lactic acidosis. - monitor closely. 5. Lactic acidosis secondary to septic shock. Continue to treat underlying sepsis. Monitor closely. 6. Anemia. Continue to monitor hemoglobin and hematocrit levels. 7. Mineral bone disorder, monitor calcium and phosphorus levels. 8. Septic shock. Etiology is unclear, possible pneumonia. Continue current management. Continue antibiotics, pressor support and IV fluids. 9. Acute encephalopathy, etiology is toxic metabolic. 10. History of colon cancer, status post resection. 11. History of cerebrovascular accident. ROSS TOLENTINO MD Aug 27, 2018 08:19
[2018-08-27] MEDS: FAMOTIDINE 20 MG INJ IV SCH (08:31)
[2018-08-27] MEDS: HEPARIN 5,000 UNIT/1 ML VIAL SC SCH ×2 (08:39→20:56)
[2018-08-27] MEDS: NORepinephrine 8MG/250 ML (PMX 250 ML IV SCH (15:37)
--- NOTE | 2018-08-27 16:19 | PN ---
Date/Time of Note Date/Time of Note DATE: 08/27/18 TIME: 16:17 Assessment/Plan VTE Prophylaxis Risk score (from [facility]0 risk: 7 SCD applied (from [facility]): Yes Pharmacological prophylaxis: heparin Lines/Catheters IV Catheter Type (from [place]): Central Line Central line still needed: Yes Urinary Cath still in place: Yes Reason Cath still needed: urinary retention Assessment/Plan Hospital Course Alert, oriented, no distress RRR CTAB Soft nt nd Two ostomy bags in place No edema A/P: 77 yo male with h/o colon cancer s/p resection with ostomy presents with sepsis and acute renal failure ANDRA: - Likely prerenal from volume loss through ostomies as well as REBECCA use - Continue IV fluids Sepsis; - Likely pneumoina - Continue abx Colon cancer with colostomy: - Stable Result Diagram: 08/27/1845608/27/18456 Results 24hrs Laboratory Tests Test 08/27/18 04:57 White Blood Count 12.5 #H Red Blood Count 2.81 #L Hemoglobin 8.8 #L Hematocrit 27.0 #L Mean Corpuscular Volume 96.1 Mean Corpuscular Hemoglobin 31.3 Mean Corpuscular Hemoglobin Concent 32.6 Red Cell Distribution Width 14.3 Platelet Count 416 #H Mean Platelet Volume 9.3 Immature Granulocytes % 1.200 H Neutrophils % 72.1 Lymphocytes % 12.8 L Monocytes % 13.2 H Eosinophils % 0.1 Basophils % 0.6 Nucleated Red Blood Cells % 0.0 Immature Granulocytes # 0.150 H Neutrophils # 9.0 H Lymphocytes # 1.6 Monocytes # 1.7 H Eosinophils # 0.0 Basophils # 0.1 Nucleated Red Blood Cells # 0.0 Sodium Level 139 Potassium Level 4.7 Chloride Level 106 Carbon Dioxide Level 17 L Anion Gap 16 H Blood Urea Nitrogen 93 H Creatinine 4.70 #H Est Glomerular Filtrat Rate mL/min Glucose Level 97 # Calcium Level 9.4 Phosphorus Level 6.5 H Magnesium Level 2.5 Total Bilirubin 0.6 Direct Bilirubin 0.00 Indirect Bilirubin 0.6 Aspartate Amino Transf (AST/SGOT) 69 H Alanine Aminotransferase (ALT/SGPT) 155 H Alkaline Phosphatase 186 H Total Protein 6.7 # Albumin 3.2 #L Globulin 3.50 H Albumin/Globulin Ratio 0.91 Subjective 24 Hr Interval Summary Free Text/Dictation Feels much better No SOB Good UOP Exam/Review of Systems Exam Vitals Vital Signs Date Temp Pulse Resp B/P (MAP) Pulse Ox O2 O2 Flow FiO2 Time Delivery Rate 08/27/18 66 18 108/58 100 15:45 (75) 08/27/18 Room Air 12:15 08/27/18 97.4 12:00 Intake and Output 08/26/18 08/26/18 08/27/18 1515:00 23:00 07:00 IntakeIntake Total 401.25 ml 882.45 ml 851.2 ml OutputOutput Total 450 ml 630 ml 570 ml BalanceBalance -48.75 ml 252.45 ml 281.2 ml Results Results 24hrs Laboratory Tests Test 08/27/18 04:57 White Blood Count 12.5 #H Red Blood Count 2.81 #L Hemoglobin 8.8 #L Hematocrit 27.0 #L Mean Corpuscular Volume 96.1 Mean Corpuscular Hemoglobin 31.3 Mean Corpuscular Hemoglobin Concent 32.6 Red Cell Distribution Width 14.3 Platelet Count 416 #H Mean Platelet Volume 9.3 Immature Granulocytes % 1.200 H Neutrophils % 72.1 Lymphocytes % 12.8 L Monocytes % 13.2 H Eosinophils % 0.1 Basophils % 0.6 Nucleated Red Blood Cells % 0.0 Immature Granulocytes # 0.150 H Neutrophils # 9.0 H Lymphocytes # 1.6 Monocytes # 1.7 H Eosinophils # 0.0 Basophils # 0.1 Nucleated Red Blood Cells # 0.0 Sodium Level 139 Potassium Level 4.7 Chloride Level 106 Carbon Dioxide Level 17 L Anion Gap 16 H Blood Urea Nitrogen 93 H Creatinine 4.70 #H Est Glomerular Filtrat Rate mL/min Glucose Level 97 # Calcium Level 9.4 Phosphorus Level 6.5 H Magnesium Level 2.5 Total Bilirubin 0.6 Direct Bilirubin 0.00 Indirect Bilirubin 0.6 Aspartate Amino Transf (AST/SGOT) 69 H Alanine Aminotransferase (ALT/SGPT) 155 H Alkaline Phosphatase 186 H Total Protein 6.7 # Albumin 3.2 #L Globulin 3.50 H Albumin/Globulin Ratio 0.91 Medications Medication Current Medications Sodium Chloride 1,000 ml @ 100 mls/hr Q10H IV Last administered on 08/27/18at 13:42; Admin Dose 100 MLS/HR; Start 08/26/18 at 03:12 Ondansetron HCl (Zofran Inj) 4 mg Q6H PRN IV NAUSEA AND/OR VOMITING; Start 08/26/18 at 03:30 Albuterol/ Ipratropium (Duoneb) 3 ml Q2H RESP THERAPY PRN NEB SHORTNESS OF BREATH; Start 08/26/18 at 03:30 Acetaminophen (Tylenol Liquid) 650 mg Q6H PRN PO PAIN LEVEL 1-3 OR FEVER; Start 08/26/18 at 03:30 Famotidine (Pepcid Iv) 20 mg DAILY IV Last administered on 08/27/18at 08:31; Admin Dose 20 MG; Start 08/26/18 at 09:00 Heparin Sodium (Porcine) (Heparin (5000 Units/1ml)) 5,000 unit Q12 SC Last administered on 08/27/18at 08:39; Admin Dose 5,000 UNIT; Start 08/26/18 at 09:00 Norepinephrine 250 ml @ 1.875 mls/ hr PER PROTOCOL IV Last administered on 08/27/18at 15:37; Admin Dose 5.625 MLS/HR; Start 08/26/18 at 03:30 Levofloxacin/ Dextrose 50 ml @ 50 mls/hr Q48H IVPB ; Start 08/28/18 at 06:00 MAGGIE NARAYANAN MD Aug 27, 2018 16:19
[2018-08-27] MEDS ORDERED: VANCOMYCIN IV PER PHARMACY XX SCH (16:30)
[2018-08-27] MEDS ORDERED: VANCOMYCIN 1 GM 250 ML IVPB ONE (17:00)
[2018-08-27] MEDS: HYDROCODONE/APAP (5/325) TAB PO PRN (19:01)
[2018-08-28] VITALS (50 sets, daily range): BP systolic 80–132; BP diastolic 41–87; PULSE 41–96; RESP 8–26
[2018-08-28] MEDS: SOD CHLORIDE 0.9% 1,000 ML IV SCH ×3 (00:30→21:19)
[2018-08-28] MEDS ORDERED: ZOLPIDEM 5 MG TAB PO ONE (00:30)
[2018-08-28] MEDS: LEVOFLOXACIN 250MG/D5W (PMX) 50 ML IVPB SCH (05:31)
--- NOTE | 2018-08-28 06:58 | CONS ---
Consult Date/Type/Reason Admit Date/Time Aug 26, 2018 at 02:47 Initial Consult Date Date/Time of Note DATE: 08/28/18 TIME: 06:53 Subjective 77-year-old male with a past medical history of bone cancer status post resection, history of neuropathy, who presents to [facility] with weakness and hypertension. The patient's history is obtained by reviewing medical records speaking to hospital staff. The patient currently is having a cough for the past 24 hours. The patient was noted to be feeling weak, more responsive and as a result, he was brought into the emergency room. Upon arrival, the patient was found to be hypertensive with systolic pressures in 70s. The patient had a elevated creatinine of 7.5 and bicarbonate of 16. The patient had a lactic acid of 3.1. White count 19,000. The patient had a CT scan of abdomen and pelvis, which showed findings of possible pneumonia. The patient was started on IV fluids, antibiotics and pressor support. now on Sodium Chloride @ 100 mls/hr continues good uo weaned off levo noted bradycardia while sleeping but corrected when awakened sp swallow eval. results reviewed. poc reviewed with dr. marcus. labs pending this am. PHYSICAL EXAMINATION: HEENT: Head is normocephalic. NECK: Supple. HEART: Regular rate. LUNGS: Show diminished breath sounds at the base. ABDOMEN: Soft, nontender to palpation without rebound or guarding. The patient has noted ileostomy and history of a colectomy. EXTREMITIES: Negative for clubbing, cyanosis, no edema. DERMATOLOGIC: No rashes. MUSCULOSKELETAL: No joint effusion. NEUROLOGIC: The patient is obtunded. Objective Vitals Vital Signs Date Temp Pulse Resp B/P (MAP) Pulse Ox O2 O2 Flow FiO2 Time Delivery Rate 08/28/18 81 18 80/62 (68) 100 Room Air 06:00 08/28/18 97.8 04:00 Intake and Output 08/27/18 08/27/18 08/28/18 1515:00 23:00 07:00 IntakeIntake Total 1058.125 ml 746.775 ml 822.50 ml OutputOutput Total 360 ml 905 ml 325 ml BalanceBalance 698.125 ml -158.225 ml 497.50 ml Results/Medications Result Diagram: 08/27/18 0457 08/27/18 0457 Home Meds Reported Medications Cholecalciferol* (Vitamin D3*) 1,000 Unit Tablet, 1000 UNIT PO DAILY, TAB 08/26/18 Tuberculin,Purif.prot.deriv. (Tubersol) 5 Tub Unit/0.1 Ml Vial, 5 TUB ID, VIAL INJECT 0.1 ML INTRADERMALLY EVERY 10 DAYS FOR PPD SCREENING FOR 11DAYS READ IN 48 HOURS, IF NEGATIVE GIVE 2 STEP IN 7 DAYS FROM FIRST DOSE. 08/26/18 Tamsulosin Hcl* (Flomax*) 0.4 Mg Cap.er.24h, 0.4 MG PO HS, CAP 08/26/18 Multivitamin with Minerals (Multivitamins with Minerals) 1 Each Tablet, 1 EACH PO DAILY, TAB 08/26/18 Lisinopril* (Lisinopril*) 2.5 Mg Tablet, 2.5 MG PO DAILY for HTN, #30 TAB 08/26/18 Heparin Sodium,Porcine/Pf (HEPARIN SOD 5,000 UNIT/ 0.5 ML) 5,000 Unit/0.5 Ml Vial, 5000 UNIT SQ Q12H for DVTPROPHYLAXIS, VIAL 08/26/18 Gabapentin* (Gabapentin*) 300 Mg Capsule, 300 MG PO QHS, #60 CAP 08/26/18 Na Phos,M-B/Na Phos,Di-Ba (Fleet Enema Extra) 230 Ml Enema, 230 ML RC, ENEMA 08/26/18 Bisacodyl (Dulcolax) 10 Mg Supp.rect, 10 MG RC PRN for CONSTIPATION, SUPP.RECT 08/26/18 Magnesium Hydroxide* (Milk Of Magnesia*) 400 Mg/5 Ml Oral.susp, 30 ML PO DAILY, ML 08/26/18 Atorvastatin* (Atorvastatin*) 80 Mg Tablet, 80 MG PO QHS, #30 TAB 08/26/18 Aspirin Ec (Aspir 81) 81 Mg Tablet.dr, 81 MG PO DAILY for CVA PROPHYLAXIS, #30 TAB 08/26/18 Acetaminophen* (Acetaminophen*) 325 Mg Tablet, 650 MG PO Q4H PRN for PAIN AND OR ELEVATED TEMP, #30 TAB 08/26/18 Medications Current Medications Sodium Chloride 1,000 ml @ 100 mls/hr Q10H IV Last administered on 08/28/18at 00:30; Admin Dose 100 MLS/HR; Start 08/26/18 at 03:12 Ondansetron HCl (Zofran Inj) 4 mg Q6H PRN IV NAUSEA AND/OR VOMITING; Start 08/26/18 at 03:30 Albuterol/ Ipratropium (Duoneb) 3 ml Q2H RESP THERAPY PRN NEB SHORTNESS OF BREATH; Start 08/26/18 at 03:30 Acetaminophen (Tylenol Liquid) 650 mg Q6H PRN PO PAIN LEVEL 1-3 OR FEVER; Sta rt 08/26/18 at 03:30 Famotidine (Pepcid Iv) 20 mg DAILY IV Last administered on 08/27/18at 08:31; Adm in Dose 20 MG; Start 08/26/18 at 09:00 Heparin Sodium (Porcine) (Heparin (5000 Units/1ml)) 5,000 unit Q12 SC Last administered on 08/27/18at 20:56; Admin Dose 5,000 UNIT; Start 08/26/18 at 09:00 Norepinephrine 250 ml @ 1.875 mls/ hr PER PROTOCOL IV Last administered on 08/27/18at 15:37; Admin Dose 5.625 MLS/HR; Start 08/26/18 at 03:30 Levofloxacin/ Dextrose 50 ml @ 50 mls/hr Q48H IVPB Last administered on 08/28/18at 05:31; Admin Dose 50 MLS/HR; Start 08/28/18 at 06:00 Vancomycin HCl (Vanco Iv Per Pharmacy) VANCOMYCIN PER PHARMACY PER PROTOCOL XX ; Start 08/27/18 at 16:30 Miscellaneous Information (*Rx Drug Level Order Reminder*) RANDOM LEVEL ON 08/29... 0500 ONCE XX ; Start 08/29/18 at 05:00; Stop 08/29/18 at 05:01 Acetaminophen/ Hydrocodone Bitart ([place] (5/325)) 1 tab Q4H PRN PO MODERATE PAIN LEVEL 4-6 Last administered on 08/27/18at 19:01; Admin Dose 1 TAB; Start 08/27/18 at 18:30 Assessment/Plan Assessment/Plan (Daily) 1. Nonoliguric acute kidney injury with unknown baseline creatinine. nonoliguric and nonproteinuric with benign sediment. - Etiology of acute kidney injury is likely multifactorial secondary to septic acute kidney injury, volume depletion, hemodynamics. The possibility of tubular injury due to sepsis and shock is a consideration. The patient's CT scan shows no evidence of hydronephrosis or obstruction. - lisinopril on hold - continue aggressive IV hydration. Continue antibiotic therapy. Continue pressor support to maintain MAP of 65. -monitor renal function closely. improvement over last 48 hours a good sign. - watch for diuretic phase of jessica with electrolyte wasting. -FENa<1 2. Hyperkalemia. Etiology is multifactorial secondary to acute kidney injury, metabolic acidosis. The patient is status post IV fluids, bicarbonate therapy. - improved. monitor 3. Hypernatremia secondary to acute kidney injury. improved. Continue to monitor. 4. Metabolic high anion gap acidosis with nonanion gap acidosis. Etiology is secondary to acute kidney injury, lactic acidosis. - monitor closely. 5. Lactic acidosis secondary to septic shock. Continue to treat underlying sepsis. Monitor closely. 6. Anemia. Continue to monitor hemoglobin and hematocrit levels. reorder labs. 7. Mineral bone disorder, monitor calcium and phosphorus levels. 8. Septic shock. Etiology is unclear, possible pneumonia. Continue current management. Continue antibiotics IV fluids. now off pressors 9. Acute encephalopathy, etiology is toxic metabolic. now improved 10. History of colon cancer, status post resection. 11. History of cerebrovascular accident. 12. bradycardia- occurs during sleep since off pressors. monitor on tele. ROSS TOLENTINO MD Aug 28, 2018 06:58
[2018-08-28] MEDS: FAMOTIDINE 20 MG INJ IV SCH (09:09)
[2018-08-28] MEDS: HEPARIN 5,000 UNIT/1 ML VIAL SC SCH ×2 (09:16→21:37)
--- NOTE | 2018-08-28 15:15 | PN ---
Date/Time of Note Date/Time of Note DATE: 08/28/18 TIME: 15:15 Assessment/Plan VTE Prophylaxis Risk score (from [facility])>0 risk: 11 SCD applied (from [facility]): Yes Pharmacological prophylaxis: heparin Lines/Catheters IV [facility] Type ([facility] Central Line Central line still needed: Yes Urinary Cath still in place: Yes Reason Cath still needed: urinary retention Assessment/Plan Hospital Course Alert, oriented, no distress RRR CTAB Soft nt nd Two ostomy bags in place No edema A/P: 77 yo male with h/o colon cancer s/p resection with ostomy presents with sepsis and acute renal failure ANDRA: - Likely prerenal from volume loss through ostomies as well as REBECCA use - Continue IV fluids Sepsis; - Likely pneumoina - Continue abx Colon cancer with colostomy: - Stable Result Diagram: 08/28/1843 08/28/18 0743 Results 24hrs Laboratory Tests Test 08/28/18 07:42 08/28/18 07:43 Hepatitis B Surface Antigen NEGATIVE Hepatitis B Core Total Antibody NEGATIVE Hepatitis C Antibody NEGATIVE White Blood Count 8.2 # Red Blood Count 2.57 L Hemoglobin 8.1 L Hematocrit 25.1 L Mean Corpuscular Volume 97.7 Mean Corpuscular Hemoglobin 31.5 Mean Corpuscular Hemoglobin Concent 32.3 Red Cell Distribution Width 14.1 Platelet Count 266 # Mean Platelet Volume 8.7 Immature Granulocytes % 1.800 H Neutrophils % 69.2 Lymphocytes % 14.9 L Monocytes % 12.9 H Eosinophils % 0.7 Basophils % 0.5 Nucleated Red Blood Cells % 0.0 Immature Granulocytes # 0.150 H Neutrophils # 5.7 Lymphocytes # 1.2 Monocytes # 1.1 H Eosinophils # 0.1 Basophils # 0.0 Nucleated Red Blood Cells # 0.0 Sodium Level 140 Potassium Level 4.1 Chloride Level 111 H Carbon Dioxide Level 18 L Anion Gap 11 Blood Urea Nitrogen 74 H Creatinine 3.11 #H Est Glomerular Filtrat Rate mL/min Glucose Level 89 Calcium Level 9.3 Phosphorus Level 5.3 H Magnesium Level 2.3 Total Bilirubin 0.5 Direct Bilirubin 0.00 Indirect Bilirubin 0.5 Aspartate Amino Transf (AST/SGOT) 64 H Alanine Aminotransferase (ALT/SGPT) 138 H Alkaline Phosphatase 181 H Total Protein 6.3 Albumin 3.1 L Globulin 3.20 Albumin/Globulin Ratio 0.96 Subjective 24 Hr Interval Summary Free Text/Dictation Renal function continues to improve Feels well No complaints Exam/Review of Systems Exam Vitals Vital Signs Date Temp Pulse Resp B/P (MAP) Pulse Ox O2 O2 Flow FiO2 Time Delivery Rate 08/28/18 79 12:01 08/28/18 18 80/62 (68) 100 Room Air 06:00 08/28/18 97.8 04:00 Intake and Output 08/27/18 08/27/18 08/28/18 1515:00 23:00 07:00 IntakeIntake Total 1058.125 ml 746.775 ml 822.50 ml OutputOutput Total 360 ml 905 ml 325 ml BalanceBalance 698.125 ml -158.225 ml 497.50 ml Results Results 24hrs Laboratory Tests Test 08/28/18 07:42 08/28/18 07:43 Hepatitis B Surface Antigen NEGATIVE Hepatitis B Core Total Antibody NEGATIVE Hepatitis C Antibody NEGATIVE White Blood Count 8.2 # Red Blood Count 2.57 L Hemoglobin 8.1 L Hematocrit 25.1 L Mean Corpuscular Volume 97.7 Mean Corpuscular Hemoglobin 31.5 Mean Corpuscular Hemoglobin Concent 32.3 Red Cell Distribution Width 14.1 Platelet Count 266 # Mean Platelet Volume 8.7 Immature Granulocytes % 1.800 H Neutrophils % 69.2 Lymphocytes % 14.9 L Monocytes % 12.9 H Eosinophils % 0.7 Basophils % 0.5 Nucleated Red Blood Cells % 0.0 Immature Granulocytes # 0.150 H Neutrophils # 5.7 Lymphocytes # 1.2 Monocytes # 1.1 H Eosinophils # 0.1 Basophils # 0.0 Nucleated Red Blood Cells # 0.0 Sodium Level 140 Potassium Level 4.1 Chloride Level 111 H Carbon Dioxide Level 18 L Anion Gap 11 Blood Urea Nitrogen 74 H Creatinine 3.11 #H Est Glomerular Filtrat Rate mL/min Glucose Level 89 Calcium Level 9.3 Phosphorus Level 5.3 H Magnesium Level 2.3 Total Bilirubin 0.5 Direct Bilirubin 0.00 Indirect Bilirubin 0.5 Aspartate Amino Transf (AST/SGOT) 64 H Alanine Aminotransferase (ALT/SGPT) 138 H Alkaline Phosphatase 181 H Total Protein 6.3 Albumin 3.1 L Globulin 3.20 Albumin/Globulin Ratio 0.96 Medications Medication Current Medications Sodium Chloride 1,000 ml @ 100 mls/hr Q10H IV Last administered on 08/28/18 12:12; Admin Dose 100 MLS/HR; Start 08/26/18 at 03:12 Ondansetron HCl (Zofran Inj) 4 mg Q6H PRN IV NAUSEA AND/OR VOMITING; Start 08/26/18 at 03:30 Albuterol/ Ipratropium (Duoneb) 3 ml Q2H RESP THERAPY PRN NEB SHORTNESS OF BREATH; Start 08/26/18 at 03:30 Acetaminophen (Tylenol Liquid) 650 mg Q6H PRN PO PAIN LEVEL 1-3 OR FEVER; Start 08/26/18 at 03:30 Famotidine (Pepcid Iv) 20 mg DAILY IV Last administered on 08/28/18 09:09; Admin Dose 20 MG; Start 08/26/18 at 09:00 Heparin Sodium (Porcine) (Heparin (5000 Units/1ml)) 5,000 unit Q12 SC Last administered on 08/28/18 09:16; Admin Dose 5,000 UNIT; Start 08/26/18 at 09:00 Norepinephrine 250 ml @ 1.875 mls/ hr PER PROTOCOL IV Last administered on 08/27/18at 15:37; Admin Dose 5.625 MLS/HR; Start 08/26/18 at 03:30 Levofloxacin/ Dextrose 50 ml @ 50 mls/hr Q48H IVPB Last administered on 08/28/18 05:31; Admin Dose 50 MLS/HR; Start 08/28/18 at 06:00 Vancomycin HCl (Vanco Iv Per Pharmacy) VANCOMYCIN PER PHARMACY PER PROTOCOL XX ; Start 08/27/18 at 16:30 Miscellaneous Information (*Rx Drug Level Order Reminder*) RANDOM LEVEL ON 08/29... 0500 ONCE XX ; Start 08/29/18 at 05:00; Stop 08/29/18 at 05:01 Acetaminophen/ Hydrocodone Bitart ([place] (5/325)) 1 tab Q4H PRN PO MODERATE PAIN LEVEL 4-6 Last administered on 08/27/18at 19:01; Admin Dose 1 TAB; Start 08/27/18 at 18:30 MAGGIE NARAYANAN MD Aug 28, 2018 15:15
[2018-08-28] MEDS: HYDROCODONE/APAP (5/325) TAB PO PRN (21:19)
[2018-08-29] VITALS (12 sets, daily range): BP systolic 131–159; BP diastolic 63–74; PULSE 53–83; RESP 18–22; Ht 172.7 cm; Wt 90.0 kg
[2018-08-29] MEDS: FAMOTIDINE 20 MG INJ IV SCH (08:23)
[2018-08-29] MEDS: HEPARIN 5,000 UNIT/1 ML VIAL SC SCH ×2 (08:30→20:28)
[2018-08-29] MEDS: SOD CHLORIDE 0.9% 1,000 ML IV SCH ×2 (09:29→22:33)
--- NOTE | 2018-08-29 13:45 | PN ---
Date/Time of Note Date/Time of Note DATE: 08/29/18 TIME: 13:44 Assessment/Plan VTE Prophylaxis Risk score (from [facility])>0 risk: 14 SCD applied (from [facility]): Yes Pharmacological prophylaxis: heparin Lines/Catheters IV C[facility]ter Type (from [facility]): Peripheral IV Urinary Cath still in place: Yes Reason Cath still needed: urinary retention Assessment/Plan Hospital Course Alert, oriented, no distress RRR CTAB Soft nt nd Two ostomy bags in place No edema A/P: 77 yo male with h/o colon cancer s/p resection with ostomy presents with sepsis and acute renal failure ANDRA: - Likely prerenal from volume loss through ostomies as well as REBECCA use - Continue IV fluids Sepsis; - Likely pneumoina - Continue abx Colon cancer with colostomy: - Stable Discahrge to home in comign days Result Diagram: 08/29/183 08/29/183 Results 24hrs Laboratory Tests Test 08/29/18 04:53 White Blood Count 8.2 Red Blood Count 2.44 L Hemoglobin 7.8 L Hematocrit 24.0 L Mean Corpuscular Volume 98.4 Mean Corpuscular Hemoglobin 32.0 Mean Corpuscular Hemoglobin Concent 32.5 Red Cell Distribution Width 13.8 Platelet Count 250 Mean Platelet Volume 9.1 Immature Granulocytes % 1.500 H Neutrophils % 64.9 Lymphocytes % 17.2 Monocytes % 14.6 H Eosinophils % 1.2 Basophils % 0.6 Nucleated Red Blood Cells % 0.0 Immature Granulocytes # 0.120 H Neutrophils # 5.3 Lymphocytes # 1.4 Monocytes # 1.2 H Eosinophils # 0.1 Basophils # 0.1 Nucleated Red Blood Cells # 0.0 Sodium Level 139 Potassium Level 4.6 Chloride Level 115 H Carbon Dioxide Level 16 L Anion Gap 8 Blood Urea Nitrogen 58 H Creatinine 2.45 H Est Glomerular Filtrat Rate mL/min Glucose Level 87 Calcium Level 9.0 Phosphorus Level 4.3 Magnesium Level 2.2 Total Bilirubin 0.4 Direct Bilirubin 0.00 Indirect Bilirubin 0.4 Aspartate Amino Transf (AST/SGOT) 43 Alanine Aminotransferase (ALT/SGPT) 114 H Alkaline Phosphatase 170 H Total Protein 6.3 Albumin 2.9 L Globulin 3.40 H Albumin/Globulin Ratio 0.85 Random Vancomycin Level 10.5 Subjective 24 Hr Interval Summary Free Text/Dictation Doing well Renal function continues to improve Phlegm production, no SOB Exam/Review of Systems Exam Vitals Vital Signs Date Temp Pulse Resp B/P (MAP) Pulse Ox O2 O2 Flow FiO2 Time Delivery Rate 08/29/18 98.0 62 18 147/70 98 Room Air 11:33 (95) Intake and Output 08/28/18 08/28/18 08/29/18 1515:00 23:00 07:00 IntakeIntake Total 1420 ml 1410 ml OutputOutput Total 620 ml 1275 ml 1050 ml BalanceBalance 800 ml 135 ml -1050 ml Results Results 24hrs Laboratory Tests Test 08/29/18 04:53 White Blood Count 8.2 Red Blood Count 2.44 L Hemoglobin 7.8 L Hematocrit 24.0 L Mean Corpuscular Volume 98.4 Mean Corpuscular Hemoglobin 32.0 Mean Corpuscular Hemoglobin Concent 32.5 Red Cell Distribution Width 13.8 Platelet Count 250 Mean Platelet Volume 9.1 Immature Granulocytes % 1.500 H Neutrophils % 64.9 Lymphocytes % 17.2 Monocytes % 14.6 H Eosinophils % 1.2 Basophils % 0.6 Nucleated Red Blood Cells % 0.0 Immature Granulocytes # 0.120 H Neutrophils # 5.3 Lymphocytes # 1.4 Monocytes # 1.2 H Eosinophils # 0.1 Basophils # 0.1 Nucleated Red Blood Cells # 0.0 Sodium Level 139 Potassium Level 4.6 Chloride Level 115 H Carbon Dioxide Level 16 L Anion Gap 8 Blood Urea Nitrogen 58 H Creatinine 2.45 H Est Glomerular Filtrat Rate mL/min Glucose Level 87 Calcium Level 9.0 Phosphorus Level 4.3 Magnesium Level 2.2 Total Bilirubin 0.4 Direct Bilirubin 0.00 Indirect Bilirubin 0.4 Aspartate Amino Transf (AST/SGOT) 43 Alanine Aminotransferase (ALT/SGPT) 114 H Alkaline Phosphatase 170 H Total Protein 6.3 Albumin 2.9 L Globulin 3.40 H Albumin/Globulin Ratio 0.85 Random Vancomycin Level 10.5 Medications Medication Current Medications Ondansetron HCl (Zofran Inj) 4 mg Q6H PRN IV NAUSEA AND/OR VOMITING; Start 08/26/18 at 03:30 Albuterol/ Ipratropium (Duoneb) 3 ml Q2H RESP THERAPY PRN NEB SHORTNESS OF BREATH; Start 08/26/18 at 03:30 Acetaminophen (Tylenol Liquid) 650 mg Q6H PRN PO PAIN LEVEL 1-3 OR FEVER; Start 08/26/18 at 03:30 Famotidine (Pepcid Iv) 20 mg DAILY IV Last administered on 08/29/18at 08:23; Admin Dose 20 MG; Start 08/26/18 at 09:00 Heparin Sodium (Porcine) (Heparin (5000 Units/1ml)) 5,000 unit Q12 SC Last administered on 08/29/18 08:30; Admin Dose 5,000 UNIT; Start 08/26/18 at 09:00 Levofloxacin/ Dextrose 50 ml @ 50 mls/hr Q48H IVPB Last administered on 08/28/18 05:31; Admin Dose 50 MLS/HR; Start 08/28/18 at 06:00 Acetaminophen/ Hydrocodone Bitart ([place] (5/325)) 1 tab Q4H PRN PO MODERATE PAIN LEVEL 4-6 Last administered on 08/28/18 21:19; Admin Dose 1 TAB; Start at 18:30 Sodium Chloride 1,000 ml @ 80 mls/hr [id number] IV Last administered on 08/29/18at 09:29; Admin Dose 80 MLS/HR; Start 08/29/18 at 09:00 MAGGIE NARAYANAN MD Aug 29, 2018 13:45
[2018-08-30] VITALS (13 sets, daily range): BP systolic 142–181; BP diastolic 71–93; PULSE 33–89; RESP 18–19
[2018-08-30] MEDS: LEVOFLOXACIN 250MG/D5W (PMX) 50 ML IVPB SCH (05:47)
--- NOTE | 2018-08-30 06:57 | PN ---
DATE: 08/29/2018 HEENT: Head is normocephalic. Neck is supple. HEART: Regular rate. LUNGS: Show diminished breath sounds at the base. ABDOMEN: Soft, nontender to palpation. No rebound or guarding. EXTREMITIES: Negative for clubbing or cyanosis. No edema. DERMATOLOGIC: No rashes. MUSCULOSKELETAL: DIAGNOSIS: History of bone cancer. Status post resection. History of CVA. Dictated By: LE FLOREZ/CHRISSY Conf#: [id number] DID#: [id number]
[2018-08-30] MEDS: FAMOTIDINE 20 MG INJ IV SCH (08:03)
[2018-08-30] MEDS: HEPARIN 5,000 UNIT/1 ML VIAL SC SCH ×2 (08:12→21:14)
--- NOTE | 2018-08-30 09:29 | PN ---
DATE: 08/30/2018 SUBJECTIVE: The patient is stable, no events overnight. OBJECTIVE: VITAL SIGNS: Blood pressure 164/88, pulse 85, respirations 18, temperature 97.9. HEENT: Head is normocephalic. NECK: Supple. HEART: Regular rate. LUNGS: Show diminished breath sounds at the base. ABDOMEN: Soft, nontender to palpation without rebound or guarding. EXTREMITIES: Negative for clubbing, cyanosis, no edema. DERMATOLOGIC: No rashes. MUSCULOSKELETAL: No joint effusion. NEUROLOGIC: No change in exam. MEDICATIONS: Reviewed. LABORATORY DATA: Reviewed. IMAGING STUDIES: Reviewed. ASSESSMENT AND PLAN: 1. Nonoliguric acute kidney injury with unknown baseline creatinine. Etiology of acute kidney injur y is secondary to hemodynamics and volume depletion. The patient's renal function has improved with supportive care and IV hydration. At this point, continue current treatment plan, supportive care, r enally dose all medications. 2. Hyperkalemia, etiology is secondary to acute kidney injury, resolved. 3. Hypernatremia, resolved. 4. Metabolic acidosis secondary to acute kidney injury, lactic acidosis, improved. Continue to shari tor. 5. Anemia. Monitor hemoglobin and hematocrit levels. 6. Mineral bone disorder, monitor calcium and phosphorus levels. 7. Sepsis, status post shock. Continue current antibiotic regimen. 8. Acute encephalopathy. Etiology is toxic metabolic. 9. History of colon cancer status post resection. 10. History of cerebrovascular accident. Dictated By: LE BALLARD DO NR/NTS Conf#: [id number] DID#: [id number] CC: MAGGIE NARAYANAN MD; YING COELHO MD;*EndCC*
[2018-08-30] MEDS: SOD CHLORIDE 0.9% 1,000 ML IV SCH ×3 (10:00→22:30)
--- NOTE | 2018-08-30 14:35 | PN ---
Date/Time of Note Date/Time of Note DATE: 08/30/18 TIME: 14:35 Assessment/Plan VTE Prophylaxis Risk score (from [facility])>0 risk: 6 SCD applied (from [facility]): Yes Pharmacological prophylaxis: heparin Lines/Catheters [facility] Peripheral IV Urinary Cath still in place: No Assessment/Plan Hospital Course Alert, oriented, no distress RRR CTAB Soft nt nd Two ostomy bags in place No edema A/P: 77 yo male with h/o colon cancer s/p resection with ostomy presents with sepsis and acute renal failure ANDRA: - Likely prerenal from volume loss through ostomies as well as REBECCA use - Continue IV fluids Sepsis; - Likely pneumoina - Continue abx Colon cancer with colostomy: - Stable Transaminitis: - likely element of shock liver, normal imaging, no RUQ symptoms, negative viral serologies Discahrge to SNF. Ready to go Result Diagram: 08/30/18 0545 08/30/18 0545 Results 24hrs Laboratory Tests Test 08/30/18 05:45 White Blood Count 8.4 Red Blood Count 2.57 L Hemoglobin 8.0 L Hematocrit 25.0 L Mean Corpuscular Volume 97.3 Mean Corpuscular Hemoglobin 31.1 Mean Corpuscular Hemoglobin Concent 32.0 Red Cell Distribution Width 14.1 Platelet Count 257 Mean Platelet Volume 9.2 Immature Granulocytes % 1.400 H Neutrophils % 69.9 Lymphocytes % 14.5 L Monocytes % 12.4 H Eosinophils % 1.3 Basophils % 0.5 Nucleated Red Blood Cells % 0.0 Immature Granulocytes # 0.120 H Neutrophils # 5.9 Lymphocytes # 1.2 Monocytes # 1.1 H Eosinophils # 0.1 Basophils # 0.0 Nucleated Red Blood Cells # 0.0 Sodium Level 143 Potassium Level 4.5 Chloride Level 118 H Carbon Dioxide Level 17 L Anion Gap 8 Blood Urea Nitrogen 39 #H Creatinine 1.89 H Est Glomerular Filtrat Rate mL/min Glucose Level 100 Calcium Level 9.4 Phosphorus Level 3.8 Magnesium Level 2.0 Subjective 24 Hr Interval Summary Free Text/Dictation Renal function continues to imporve Doing well no complaints Exam/Review of Systems Exam Vitals Vital Signs Date Temp Pulse Resp B/P (MAP) Pulse Ox O2 O2 Flow FiO2 Time Delivery Rate 08/30/18 86 12:18 08/30/18 98.5 18 155/71 91 11:16 (99) 08/30/18 Room Air 03:33 Intake and Output 08/29/18 08/29/18 08/30/18 1515:00 23:00 07:00 IntakeIntake Total 570 ml 320 ml OutputOutput Total 1390 ml 1000 ml BalanceBalance 570 ml -1070 ml -1000 ml Results Results 24hrs Laboratory Tests Test 08/30/18 05:45 White Blood Count 8.4 Red Blood Count 2.57 L Hemoglobin 8.0 L Hematocrit 25.0 L Mean Corpuscular Volume 97.3 Mean Corpuscular Hemoglobin 31.1 Mean Corpuscular Hemoglobin Concent 32.0 Red Cell Distribution Width 14.1 Platelet Count 257 Mean Platelet Volume 9.2 Immature Granulocytes % 1.400 H Neutrophils % 69.9 Lymphocytes % 14.5 L Monocytes % 12.4 H Eosinophils % 1.3 Basophils % 0.5 Nucleated Red Blood Cells % 0.0 Immature Granulocytes # 0.120 H Neutrophils # 5.9 Lymphocytes # 1.2 Monocytes # 1.1 H Eosinophils # 0.1 Basophils # 0.0 Nucleated Red Blood Cells # 0.0 Sodium Level 143 Potassium Level 4.5 Chloride Level 118 H Carbon Dioxide Level 17 L Anion Gap 8 Blood Urea Nitrogen 39 #H Creatinine 1.89 H Est Glomerular Filtrat Rate mL/min Glucose Level 100 Calcium Level 9.4 Phosphorus Level 3.8 Magnesium Level 2.0 Medications Medication Current Medications Ondansetron HCl (Zofran Inj) 4 mg Q6H PRN IV NAUSEA AND/OR VOMITING; Start 08/26/18 at 03:30 Albuterol/ Ipratropium (Duoneb) 3 ml Q2H RESP THERAPY PRN NEB SHORTNESS OF BREATH; Start 08/26/18 at 03:30 Acetaminophen (Tylenol Liquid) 650 mg Q6H PRN PO PAIN LEVEL 1-3 OR FEVER; Start 08/26/18 at 03:30 Famotidine (Pepcid Iv) 20 mg DAILY IV Last administered on 08/30/18at 08:03; Admin Dose 20 MG; Start 08/26/18 at 09:00 Heparin Sodium (Porcine) (Heparin (5000 Units/1ml)) 5,000 unit Q12 SC Last administered on 08/30/18at 08:12; Admin Dose 5,000 UNIT; Start 08/26/18 at 09:00 Levofloxacin/ Dextrose 50 ml @ 50 mls/hr Q48H IVPB Last administered on 08/30/18at 05:47; Admin Dose 50 MLS/HR; Start 08/28/18 at 06:00 Acetaminophen/ Hydrocodone Bitart ([place] (5/325)) 1 tab Q4H PRN PO MODERATE PAIN LEVEL 4-6 Last administered on 08/28/18at 21:19; Admin Dose 1 TAB; Start 08/27/18 at 18:30 Sodium Chloride 1,000 ml @ 80 mls/hr [id number] IV Last administered on 08/29/18at 22:33; Admin Dose 80 MLS/HR; Start 08/29/18 at 09:00 MAGGIE NARAYANAN MD Aug 30, 2018 14:35
[2018-08-31] VITALS: BP 140/71; PULSE 62; PULSE 86; RESP 20
[2018-08-31 04:00] VITALS: BP 141/73; PULSE 69; PULSE 94; RESP 18
[2018-08-31 07:45] VITALS: BP 134/82; PULSE 64; RESP 18
[2018-08-31] MEDS: FAMOTIDINE 20 MG INJ IV SCH (08:04)
[2018-08-31] MEDS: HEPARIN 5,000 UNIT/1 ML VIAL SC SCH (08:09)
--- NOTE | 2018-08-31 08:46 | PN ---
DATE: 08/31/2018 SUBJECTIVE: The patient is stable, no events overnight. No fevers, chills, nausea, vomiting, no lexis rtness of breath. OBJECTIVE: VITAL SIGNS: Blood pressure 134/82, respiration 18, pulse 64, temperature 98.4. HEENT: Head is normocephalic. NECK: Supple. HEART: Regular rate. LUNGS: Show diminished breath sounds at the base. ABDOMEN: Soft, nontender to palpation without rebound or guarding. EXTREMITIES: Negative for clubbing, cyanosis, no edema. DERMATOLOGIC: No rashes. MUSCULOSKELETAL: No joint effusion. NEUROLOGIC: No change in exam. MEDICATIONS: The patient's medications have been reviewed. LABORATORY DATA: Has been reviewed. IMAGING STUDIES: Have been reviewed. ASSESSMENT AND PLAN: 1. Nonoliguric acute kidney injury with unknown baseline creatinine. Etiology of ANDRA is secondary t o hemodynamics, volume depletion. The patient's renal function is improving with IV fluids. Plan is to discontinue IV hydration. Continue current treatment plan and supportive care and renally dose a ll meds. 2. Hyperkalemia, resolved. 3. Hyponatremia, resolved. 4. Metabolic acidosis secondary to acute kidney injury, IV fluids, continue to monitor. 5. Anemia. Monitor hemoglobin and hematocrit levels. 6. Mineral bone disorder. Monitor calcium and phosphorus levels. 7. Sepsis, status post shock. Continue current regimen. 8. Acute encephalopathy, etiology is toxic metabolic. 9. History of colon cancer, status post resection. Continue to monitor. 10. History of cerebrovascular accident. Dictated By: LE BALLARD DO NR/NTS Conf#: [id number] DID#: [id number] CC: YING COELHO MD; MAGGIE NARAYANAN MD;*EndCC*
[2018-08-31 08:57] VITALS: PULSE 95
[2018-08-31] MEDS ORDERED: SOD CHLORIDE 0.9% 500 ML IV ONE (09:00)
[2018-08-31 11:09] VITALS: BP 142/83; PULSE 94; RESP 18
[2018-08-31 12:41] VITALS: PULSE 92
--- NOTE | 2018-08-31 14:50 | DS ---
Date/Time of Note Date/Time of Note DATE: 08/31/18 TIME: 14:48 Discharge Summary Admission/Discharge Info Admit Date/Time Aug 26, 2018 at 02:47 Discharge Date/Time Discharge Diagnosis ANDRA Sepsis Pneumoina Colon cancer Patient Condition: Stable Hospital Course 77 yo male with h/o colon cancer s/p resection with ostomy presents with sepsis and acute renal failure His renal failure was found to be a result of hypovolemia and reversed with aggressive IV fluids His was treated with vasopressors and IV antibitoics for sepsis. Imaging showed pneumonia. He completed a course of antibiotics and improved All symptoms resolved to baseline and he was discharged back to [facility] for further shelter Meds Reported Medications Tamsulosin Hcl* (Flomax*) 0.4 Mg Cap.er.24h, 0.4 MG PO HS, CAP 08/26/18 Heparin Sodium,Porcine/Pf (HEPARIN SOD 5,000 UNIT/ 0.5 ML) 5,000 Unit/0.5 Ml Vial, 5000 UNIT SQ Q12H for DVTPROPHYLAXIS, VIAL 08/26/18 Gabapentin* (Gabapentin*) 300 Mg Capsule, 300 MG PO QHS, #60 CAP 08/26/18 Atorvastatin* (Atorvastatin*) 80 Mg Tablet, 80 MG PO QHS, #30 TAB 08/26/18 Aspirin Ec (Aspir 81) 81 Mg Tablet.dr, 81 MG PO DAILY for CVA PROPHYLAXIS, #30 TAB 08/26/18 Acetaminophen* (Acetaminophen*) 325 Mg Tablet, 650 MG PO Q4H PRN for PAIN AND OR ELEVATED TEMP, #30 TAB 08/26/18 Discontinued Reported Medications Cholecalciferol* (Vitamin D3*) 1,000 Unit Tablet, 1000 UNIT PO DAILY, TAB 08/26/18 Tuberculin,Purif.prot.deriv. (Tubersol) 5 Tub Unit/0.1 Ml Vial, 5 TUB ID, VIAL INJECT 0.1 ML INTRADERMALLY EVERY 10 DAYS FOR PPD SCREENING FOR 11DAYS READ IN 48 HOURS, IF NEGATIVE GIVE 2 STEP IN 7 DAYS FROM FIRST DOSE. 08/26/18 Multivitamin with Minerals (Multivitamins with Minerals) 1 Each Tablet, 1 EACH PO DAILY, TAB 08/26/18 Lisinopril* (Lisinopril*) 2.5 Mg Tablet, 2.5 MG PO DAILY for HTN, #30 TAB 08/26/18 Na Phos,M-B/Na Phos,Di-Ba (Fleet Enema Extra) 230 Ml Enema, 230 ML RC, ENEMA 08/26/18 Bisacodyl (Dulcolax) 10 Mg Supp.rect, 10 MG RC PRN for CONSTIPATION, SUPP.RECT 08/26/18 Magnesium Hydroxide* (Milk Of Magnesia*) 400 Mg/5 Ml Oral.susp, 30 ML PO DAILY, ML 08/26/18 Primary Care Provider Not On Staff Doctor Pending Labs Laboratory Tests Test 08/31/18 05:26 White Blood Count 8.5 10^3/ul (4.8-10.8) Red Blood Count 2.78 10^6/ul (4.70-6.10) Hemoglobin 8.6 g/dl (14.0-18.0) Hematocrit 26.2 % (42.0-52.0) Mean Corpuscular Volume 94.2 fl (82.0-101.0) Mean Corpuscular Hemoglobin 30.9 pg (29.0-33.0) Mean Corpuscular Hemoglobin Concent 32.8 g/dl (32.0-37.0) Red Cell Distribution Width 14.0 % (11.5-14.5) Platelet Count 283 10^3/UL (140-415) Mean Platelet Volume 8.9 fl (7.4-10.4) Immature Granulocytes % 1.200 % (0.001-0.429) Neutrophils % 67.0 % (39.0-77.0) Lymphocytes % 17.9 % (15.0-51.0) Monocytes % 11.8 % (0.0-11.0) Eosinophils % 1.4 % (0.0-7.0) Basophils % 0.7 % (0.0-2.0) Nucleated Red Blood Cells % 0.0 /100WBC (0.0-0.0) Immature Granulocytes # 0.100 10^3/ul (0.0-0.031) Neutrophils # 5.7 10^3/ul (1.6-7.5) Lymphocytes # 1.5 10^3/ul (0.8-2.9) Monocytes # 1.0 10^3/ul (0.3-0.9) Eosinophils # 0.1 10^3/ul (0.0-0.5) Basophils # 0.1 10^3/ul (0.0-0.1) Nucleated Red Blood Cells # 0.0 10^3/ul (0.0-0.0) Sodium Level 144 mmol/L (135-144) Potassium Level 4.5 mmol/L (3.5-5.1) Chloride Level 118 mmol/L (97-110) Carbon Dioxide Level 18 mmol/L (21-31) Anion Gap 8 (5-13) Blood Urea Nitrogen 27 mg/dl (7-20) Creatinine 1.52 mg/dl (0.61-1.24) Est Glomerular Filtrat Rate mL/min mL/min (>60) Glucose Level 99 mg/dl (70-220) Calcium Level 9.6 mg/dl (8.4-10.2) Phosphorus Level 3.4 mg/dl (2.5-4.9) Magnesium Level 1.9 mg/dl (1.7-2.5) MAGGIE NARAYANAN MD Aug 31, 2018 14:50
== END 2018-08-31 15:51 | DRG 871 ==
LOC: E/R 00:25 → ICU 02:47 → 6WM 08-28 23:55
PROVIDERS: ADMIT Internal Medicine; ATTEND Internal Medicine
DX: A41.9 Sepsis, unspecified organism (principal); R65.21 Severe sepsis with septic shock; J69.0 Pneumonitis due to inhalation of food and vomit; G92 Toxic encephalopathy; E87.2 Acidosis; N17.9 Acute kidney failure, unspecified; E87.0 Hyperosmolality and hypernatremia; I95.9 Hypotension, unspecified; E87.5 Hyperkalemia; E86.0 Dehydration; D64.9 Anemia, unspecified; R00.1 Bradycardia, unspecified; N18.9 Chronic kidney disease, unspecified; E78.5 Hyperlipidemia, unspecified; N40.0 Benign prostatic hyperplasia without lower urinary tract symptoms; Z93.3 Colostomy status
CPT/HCPCS: 36415; 71045; 74176; 76700; 76937; 80048; 80053; 80202; 81001; 81003; 82043; 82436; 83605; 83690; 83735; 84100; 84133; 84155; 84300; 84484; 85025; 85610; 85730; 86704; 86709; 86803; 87081; 87086; 87340; 92526; 92610; 93005; 96374; 96375; 97162; C1751; J0610; J1644; J1956; J3370; J7030; J7040